=== PATIENT | female | born 1960 | race Hispanic/Latino ===

== ENCOUNTER 2019-05-06 11:30 | Emergency (ER) | payer SELFPAY ==
[~2019-05-06] VITALS: Ht 162.6 cm; Wt 72.0 kg
[~2019-05-06 11:30] MED LIST: LISINOPRIL20 MG PO; METFORMIN500 MG PO; MOTRIN800 MG PO; TAM75CAP PO
[2019-05-06] MEDS ORDERED: PREDNISONE10 MG PO (12:24)
[2019-05-06] MEDS ORDERED: PEPCID20 MG PO (12:25)
[2019-05-06 12:41] VITALS: BP 161/79
[2019-06-17] MEDS ORDERED: PROTONIX40 M2 PO (11:34)
[2019-06-17] MEDS ORDERED: HYDROCODONE BIT1 TA7 (11:35)
[2019-06-17] MEDS ORDERED: [UNRECOGNIZED DRUG - SUPPLY] VI (11:36)
== END 2019-05-06 12:50 | disposition home or self-care (01) | DRG 552 ==
LOC: ED 11:30
DX: M54.41 Lumbago with sciatica, right side (principal); E11.9 Type 2 diabetes mellitus without complications; I10 Essential (primary) hypertension

== ENCOUNTER 2019-06-27 | Emergency (ER) | payer SELFPAY ==
[~2019-06-27] MED LIST changes: +HYDROCODONE BIT1 TA7; +PEPCID20 MG PO; +PREDNISONE10 MG PO; +PROTONIX40 M2 PO; +[UNRECOGNIZED DRUG - SUPPLY] VI
[2019-06-27] MEDS ORDERED: GLUCOSA PO (11:19)
[2019-06-27] MEDS ORDERED: [UNRECOGNIZED DRUG - OTHER] PO (11:21)
[2019-06-27] MEDS ORDERED: ACETAMINOPHEN500 MG PO (11:24)
[2019-06-27 15:48] LABS: HEMATOCRIT 40.9 % (37.0-47.0); HEMOGLOBIN 14.1 g/dl (12.0-16.0); IMMATURE GRANULOCYTES 0.3 % (0.0-5.0); MEAN CELL VOLUME 84.7 fL CALC (80.0-100.0); MEAN CORPUSCULAR HGB 29.2 pG CALC (26.0-32.0); MEAN CORPUSCULAR HGB CONC 34.5 g/L CALC (32.0-36.0); NEUT# 5.58 thou/uL (2.00-7.15); RED BLOOD COUNT 4.83 mill/uL (4.20-5.60); RED CELL DISTRI WIDTH 12.1 % (11.5-15.5)
[2019-06-27 16:05] LABS: ALBUMIN 4.3 g/dL (3.2-5.0); ALKALINE PHOSPHATASE 69 u/l (38-126); AMYLASE 85 u/l (30-110); ANION GAP 15 (6-22 (CALC)); BILIRUBIN, TOTAL 0.5 mg/dL (0.0-1.4); BUN 10 mg/dL (7-17); BUN/CREATININE RATIO 35 (12-20 (CALC)); CARBON DIOXIDE 25 mmol/l (22-30); CHLORIDE 97 mmol/l (95-108); CREATININE 0.3 mg/dL (0.5-1.0); GFR > 60 ML/MIN (>=60 (CALC)); GFR FOR AFR.AMER. > 60 ML/MIN (>=60 (CALC)); LIPASE 239 u/l (23-300); POTASSIUM 3.4 mmol/l (3.5-5.1); SGOT/AST 32 u/l (14-36); SODIUM 133 mmol/l (137-146); TOTAL PROTEIN 7.6 g/dL (6.3-8.2)
[2019-06-27] MEDS ORDERED: ZOFRAN4 MG/TAB PO (17:28)
[2019-06-27] MEDS ORDERED: LORTAB 7.57.5 MG PO (17:28)
== END 2019-06-27 18:21 | disposition home or self-care (01) | DRG 446 ==
PROVIDERS: Family Medicine
DX: K82.9 Disease of gallbladder, unspecified (principal); E11.9 Type 2 diabetes mellitus without complications; I10 Essential (primary) hypertension

== ENCOUNTER 2019-07-02 | Day surgery (SDC) | payer SELFPAY ==
[~2019-07-02] MED LIST changes: +ACETAMINOPHEN500 MG PO; +GLUCOSA PO; +LORTAB 7.57.5 MG PO; +ZOFRAN4 MG/TAB PO; +[UNRECOGNIZED DRUG - OTHER] PO
[2019-07-02] MEDS ORDERED: MULTI VIT PO (10:09)
[2019-07-02] MEDS ORDERED: PERCOCET 5/325M1 TAB PO (12:09)
== END 2019-07-02 13:20 | disposition home or self-care (01) | DRG 419 ==
PROC: 0FT44ZZ Resection of Gallbladder, Percutaneous Endoscopic Approach (ICD-10-PCS; principal; 2019-07-02)
DX: K81.1 Chronic cholecystitis (principal); E11.9 Type 2 diabetes mellitus without complications; I10 Essential (primary) hypertension
CPT/HCPCS: J0131; J1100; J2710